=== PATIENT | male | born 2000 | race Caucasian/White ===

== ENCOUNTER 2025-04-15 20:47 | Emergency (ER) | payer BC ==
--- NOTE | 2025-04-15 21:33 | ED ---
General Adult HPI - General Chief complaint: Extremity Injury, Upper Stated complaint: Fall-Bilateral Hand Injury Time Seen by Provider: 04/15/25 20:58 Source: patient, RN notes reviewed Mode of arrival: ambulatory Limitations: no limitations - History of Present Illness Initial comments: 25-year-old male presenting to the emergency department with his mother for complaints of bilateral hand pain. Patient states that he was helping a ladder approximately 7 feet when he fell landing onto both of his hands that were palmar flexed. Patient denies hitting his head, loss of consciousness, or other to the time of the fall. Patient is complaining of bilateral dorsum hand pain however denies loss of range of motion. Is requesting Tylenol. - Related Data Allergies Allergy/AdvReac Type Severity Reaction Status Date / Time peanut Allergy Unknown Verified 04/15/25 20:51 Childhood Review of Systems ROS Statement: Those systems with pertinent positive or pertinent negative responses have been documented in the HPI. ROS Other: All systems not noted in ROS Statement are negative. Past Medical History Past Medical History: No Reported History History of Any Multi-Drug Resistant Organisms: None Reported Past Surgical History: No Surgical Hx Reported Past Psychological History: No Psychological Hx Reported Smoking Status: Never smoker Past Alcohol Use History: Occasional Past Drug Use History: None Reported General Exam Limitations: no limitations Neck exam: Present: normal inspection. Absent: tenderness, meningismus, lymphadenopathy Respiratory exam: Present: normal lung sounds bilaterally. Absent: respiratory distress, wheezes, rales, rhonchi, stridor Cardiovascular Exam: Present: regular rate, normal rhythm, normal heart sounds. Absent: systolic murmur, diastolic murmur, rubs, gallop, clicks GI/Abdominal exam: Present: soft, normal bowel sounds. Absent: distended, tenderness, guarding, rebound, rigid Left Hand Wrist exam: Present: tenderness, swelling, ecchymosis. Absent: deformity, crepitus Neuro motor exam: Present: wrist extension intact, thumb opposition intact, thumb IP flexion intact, thumb adduction intact Vascular: Present: normal capillary refill. Absent: vascular compromise Right Hand Wrist exam: Present: full ROM, tenderness, swelling, ecchymosis. Absent: deformity, crepitus, dislocation Neuro motor exam: Present: wrist extension intact, thumb opposition intact, thumb IP flexion intact, thumb adduction intact Vascular: Present: normal capillary refill, radial pulse (2+). Absent: vascular compromise Course Vital Signs 04/15/25 04/15/25 20:49 21:57 Temperature 97.4 F L 97.6 F Pulse Rate 80 55 L Respiratory 18 14 Rate Blood Pressure 134/90 110/70 O2 Sat by Pulse 100 98 Oximetry Procedures - Orthopedic Splinting/Casting Injury #1 Side: left Upper Extremity Injury Location: hand Upper Extremity Immobilizer: ulnar gutter, Wili wrap, synthetic pre-padded splint Injury #2 Side: right Upper Extremity Injury Location: hand Upper Extremity Immobilizer: ulnar gutter, Wili wrap, synthetic pre-padded splint Medical Decision Making - Medical Decision Making Was pt. sent in by a medical professional or institution (, PA, WAXED BAG MACHINE OPERATOR, urgent care, hospital, or fpc...) When possible be specific @ -No Did you speak to anyone other than the patient for history (EMS, parent, family, police, friend...)? What history was obtained from this source @ -No Did you review nursing and triage notes (agree or disagree)? Why? @ -I reviewed and agree with nursing and triage notes Were old charts reviewed (outside hosp., previous admission, EMS record, old EKG, old radiological studies, urgent care reports/EKG's, fpc records)? Report findings @ -No old charts were reviewed Differential Diagnosis (chest pain, altered mental status, abdominal pain women, abdominal pain men, vaginal bleeding, weakness, fever, dyspnea, syncope, headache, dizziness, GI bleed, back pain, seizure, CVA, palpatations, mental health, musculoskeletal)? @ -Differential Musculoskeletal Muscular strain, contusion, ligament sprain, fracture, arthritis, septic arthritis, bursitis, cellulitis, muscle spasm, nerve compression, DVT, arterial occlusion, herpes zoster, electrolyte abnormality, tumor.... This is not meant to be in all inclusive list EKG interpreted by me (3pts min.). @ -None X-rays interpreted by me (1pt min.). @ -X-ray imaging of bilateral hands reveals an acute fracture of the distal metacarpal bilaterally with volar angulation and soft tissue swelling. CT interpreted by me (1pt min.). @ -None done U/S interpreted by me (1pt. min.). @ -None done What testing was considered but not performed or refused? (CT, X-rays, U/S, labs)? Why? @ -None What meds were considered but not given or refused? Why? @ -None Did you discuss the management of the patient with other professionals (professionals i.e. , PA, WAXED BAG MACHINE OPERATOR, lab, RT, psych nurse, social media marketing specialist, in file operator, teacher, juvenile detention officer, case packer and sealer)? Give summary @ -No Was smoking cessation discussed for >3mins.? @ -No Was critical care preformed (if so, how long)? @ -No Were there social determinants of health that impacted care today? How? (Homelessness, low income, unemployed, alcoholism, drug addiction, transportation, low edu. Level, literacy, decrease access to med. care, fpc, rehab)? @ -No Was there de-escalation of care discussed even if they declined (Discuss DNR or withdrawal of care, Hospice)? DNR status @ -No What co-morbidities impacted this encounter? (DM, HTN, Smoking, COPD, CAD, Cancer, CVA, ARF, Chemo, Hep., AIDS, mental health diagnosis, sleep apnea, morbid obesity)? @ -None Was patient admitted / discharged? Hospital course, mention meds given and route, prescriptions, significant lab abnormalities, going to OR and other pertinent info. @ -Discharge. 25 male presenting with bilateral hand pain. There is noted tenderness and ecchymosis and edema to bilateral lateral dorsum hands with no anatomical snuffbox tenderness bilaterally. Patient has range of motion of bilateral wrist with no neurovascular compromise. He is provided with dose of Tylenol for pain relief. X-ray imaging of bilateral hands reveals an acute fracture of the distal metacarpal bilaterally with volar angulation and soft tissue swelling. Patient is placed in a ulnar gutter splint in bilateral hands and is provided with desktop specialist follow-up. RICE therapy discussed at bedside. Case discussed with my attending Dr. Wright. Undiagnosed new problem with uncertain prognosis? @ -No Drug Therapy requiring intensive monitoring for toxicity (Heparin, Nitro, Insulin, Cardizem)? @ -No Were any procedures done? @ -Ulnar gutter splinting to bilateral hands Diagnosis/symptom? @ -Metacarpal fracture bilateral hands Acute, or Chronic, or Acute on Chronic? @ -Acute Uncomplicated (without systemic symptoms) or Complicated (systemic symptoms)? @ -Uncomplicated Side effects of treatment? @ -No Exacerbation, Progression, or Severe Exacerbation? @ -No Poses a threat to life or bodily function? How? (Chest pain, [place], [place], pneumonia, PE, COPD, DKA, ARF, appy, cholecystitis, CVA, Diverticulitis, Homicidal, Suicidal, threat to staff... and all critical care pts) @ -No Disposition Clinical Impression: Fracture, metacarpal Disposition: HOME SELF-CARE Condition: Good Instructions (If sedation given, give patient instructions): Hand Fracture (ED) Additional Instructions: Please return to the Emergency Department if symptoms worsen or any other concerns. Please keep splint in place until follow-up with desktop specialist. Continue to take Tylenol and/or Motrin as needed for pain relief. Is patient prescribed a controlled substance at d/c from ED?: No Referrals: None,Stated [Primary Care Provider] - 1-2 days Jack Krishnan MD [Medical Doctor] - 1-2 days Time of Disposition: 21:35
--- NOTE | 2025-04-15 21:40 | XR ---
EXAMINATION TYPE: XR hand complete bilateral DATE OF EXAM: 04/15/2025 9:18 PM COMPARISON: None CLINICAL INDICATION: Male, 25 years old with history of pain; PHH, pain TECHNIQUE: XR hand complete bilateral 3 views were obtained. FINDINGS: Acute fractures of the bilateral fifth metacarpals distally with volar angulation. There is soft tissue swelling bilaterally. No additional fractures visualized. IMPRESSION: Acute fracture of the distal metacarpal bilaterally with volar angulation and soft tissue swelling.[facility], , 04/15/2025 9:38 PM
[2025-04-15] MEDS: ACETAMINOPHEN TAB 325 MG TAB PO STA (21:53)
[2025-04-15 22:10] VITALS: BP 110/70; PULSE 55; RESP 14; TEMP 97.6
== END 2025-04-15 21:57 | disposition home or self-care (01) ==
LOC: EC 20:47
DX: S62.304A Unspecified fracture of fourth metacarpal bone, right hand, initial encounter for closed fracture (principal); S62.305A Unspecified fracture of fourth metacarpal bone, left hand, initial encounter for closed fracture; M79.641 Pain in right hand; M79.642 Pain in left hand; Z91.010 Allergy to peanuts; W19.XXXA Unspecified fall, initial encounter; W11.XXXA Fall on and from ladder, initial encounter
CPT/HCPCS: 29125; 99283